=== PATIENT | female | born 1980 | race Caucasian/White ===

== ENCOUNTER 2016-09-15 10:30 | Inpatient (IN) | payer OTHER ==
[~2016-09-15] VITALS: Ht 154 cm; Wt 80.7 kg
[2016-09-15] MEDS ORDERED: PREN1TAB80 PO (11:30)
[2016-09-15] MEDS ORDERED: LIDOCAINE HCL/PF 1% 30 ML VIAL INJ PRN (19:45)
[2016-09-15] MEDS ORDERED: RINGERS SOLUTION,LACTATED 1,000 ML IV ONE (19:45)
[2016-09-15] MEDS ORDERED: OXYTOCIN 30 UNITS/LACT RINGERS 500 ML IV ONE (19:45)
[2016-09-15] MEDS ORDERED: FentaNYL CITRATE-PF 100 MCG/2 ML VIAL IVP PRN (19:45)
[2016-09-15] MEDS ORDERED: METOCLOPRAMIDE HCL 5 MG/ML 2 ML VIAL IVP PRN (19:45)
[2016-09-15] MEDS ORDERED: OXYTOCIN 30 UNITS/LACT RINGERS 500 ML IV PRN (20:06)
[2016-09-15 20:17] LABS: BASOPHILS % (AUTO) 0.3 % (0.0-2.0); EOSINOPHILS % (AUTO) 0.1 % (1.0-6.0); HEMATOCRIT 42.7 % (36-46); HEMOGLOBIN 14.2 g/dL (12.0-16.0); LYMPHOCYTES # (AUTO) 1.2 K/uL (1.0-4.8); LYMPHOCYTES % (AUTO) 10.6 % (22.0-44.0); MEAN CORPUSCULAR HEMOGLOBIN 30.1 pg (26.0-34.0); MEAN CORPUSCULAR HGB CONC 33.1 G/dL (31.0-37.0); MEAN CORPUSCULAR VOLUME 91 fL (80-100); MONOCYTES # (AUTO) 0.4 K/uL (0.1-1.0); MONOCYTES % (AUTO) 3.5 % (2.0-9.0); RED BLOOD CELL COUNT(AUTO) 4.71 MIL/uL (4.00-5.20); RED CELL DISTRIBUTION WIDTH 13.6 % (11.5-14.5); WHITE BLOOD COUNT (AUTO) 11.7 K/uL (4.5-11.0)
[2016-09-15 20:24] VITALS: BP 108/69
[2016-09-15 20:26] LABS: NEUTROPHILS % (AUTO) 85.5 % (40.0-70.0)
[2016-09-15] MEDS: RINGERS SOLUTION,LACTATED 1,000 ML IV SCH (20:29)
[2016-09-15] MEDS ORDERED: FentaNYL/BUPIV 0.125%/NS/PF 200 ML ED ONE (20:39)
[2016-09-15] MEDS ORDERED: LIDOCAINE HCL/PF 2% 5 ML VIAL ONE (20:39)
[2016-09-15] MEDS ORDERED: FentaNYL/BUPIV 0.125%/NS/PF 200 ML ED PRN (22:05)
[2016-09-15] MEDS ORDERED: PROMETHAZINE HCL 12.5 MG in SODIUM CHLORIDE 0.9% 50 ML IV PRN (22:15)
[2016-09-15] MEDS ORDERED: DiphenhydrAMINE HCL 50 MG/ML VIAL IVP PRN (22:15)
[2016-09-15] MEDS ORDERED: NALBUPHINE HCL 10 MG/ML VIAL IVP PRN (22:15)
[2016-09-15] MEDS ORDERED: ONDANSETRON HCL 4 MG/2 ML VIAL IVP PRN (22:15)
[2016-09-16] MEDS: RINGERS SOLUTION,LACTATED 1,000 ML IV SCH ×2 (01:36→09:23)
[2016-09-16] MEDS ORDERED: OXYTOCIN 20 UNITS in RINGERS SOLUTION,LACTATED 1,000 ML IV ONE (03:30)
[2016-09-16] MEDS ORDERED: OXYTOCIN 20 UNITS in RINGERS SOLUTION,LACTATED 1,000 ML IV SCH (13:07)
[2016-09-16] MEDS ORDERED: MEASLES/MUMPS/RUBELLA VACCINE, LIVE 0.5 ML/VIAL SQ ONE (13:15)
[2016-09-16] MEDS ORDERED: BENZOCAINE 20%/MENTHOL 56 GM SPRAY CANISTER TP PRN (13:15)
[2016-09-16] MEDS ORDERED: GLYCERIN/WITCH HAZEL LEAF 40 PADS JAR TP PRN (13:15)
[2016-09-16] MEDS ORDERED: ACETAMINOPHEN/CODEINE 300-30 MG TABLET PO PRN (13:15)
[2016-09-16] MEDS ORDERED: SENNA/DOCUSATE SODIUM 187-50 MG TABLET PO PRN (13:15)
[2016-09-16] MEDS ORDERED: MAGNESIUM HYDROXIDE SUSPENSION 30 ML UDCUP PO PRN (13:15)
[2016-09-16] MEDS ORDERED: LANOLIN 7 GM OINTMENT TP PRN (13:15)
[2016-09-16] MEDS: IBUPROFEN 600 MG TABLET PO PRN (14:39)
[2016-09-17] MEDS: IBUPROFEN 600 MG TABLET PO PRN (04:54)
[2016-09-17] MEDS ORDERED: IBUP-1547 PO ×2 (10:03→10:09)
== END 2016-09-17 12:05 | disposition home or self-care (01) | DRG 775 ==
LOC: OBSVTOIN 10:30 → 4S 10:30
PROVIDERS: ADMIT Obstetrics & Gynecology; ATTEND Obstetrics & Gynecology
PROC: 3E0R3CZ (ICD-10-PCS; 2016-09-15)
PROC: 10E0XZZ Delivery of Products of Conception, External Approach (ICD-10-PCS; principal; 2016-09-16)
PROC: 0W8NXZZ Division of Female Perineum, External Approach (ICD-10-PCS; 2016-09-16)
PROC: 00HU33Z Insertion of Infusion Device into Spinal Canal, Percutaneous Approach (ICD-10-PCS; 2016-09-16)
DX: O80 Encounter for full-term uncomplicated delivery (principal); Z3A.39 39 weeks gestation of pregnancy; Z37.0 Single live birth
CPT/HCPCS: 86850; 86900; 86901; J2590; J3010; J3490; J7120